=== PATIENT | male | born 1950 | race American Indian/Alaskan Native ===

== ENCOUNTER 2022-04-06 18:16 | Emergency (ER) | payer MEDICARE ==
[2022-04-06] MEDS ORDERED: SODIUM CHLORIDE 0.9% 1000 ML 1,000 ML IV ONE (19:09)
--- NOTE | 2022-04-06 19:14 | Emergency Department Report ---
ED Syncope HPI - General Chief Complaint: Syncope Stated Complaint: SYNCOPE/NAUSEA/VOMITING Time Seen by Provider: 04/06/22 18:57 - History of Present Illness Initial Comments: 71-year-old with a history of hypertension, diabetes brought in by EMS from the [facility] with syncope episode associated with nausea and vomiting that started this afternoon. Patient's last meal was around 7:38 AM this morning. According to patient and who was in the examination room with the patient says that the weakness patient eyes rolled back and was shaking. Pt denies any fever but chills. The family was travelling back to [place] laying ove in [place] having been visiting [place] for about 2 weeks. Pt has had both Covid shots and boosted. No other modifying or associated factors reported. - Related Data Allergies/Adverse Reactions: Allergies codeine Allergy (Verified 04/06/22 18:35) Unknown ED Review of Systems ROS: Stated complaint: SYNCOPE/NAUSEA/VOMITING Other details as noted in HPI Comment: All other systems reviewed and negative ED Past Medical Hx - Past Medical History Previous Medical History?: Yes Hx Hypertension: Yes Hx Diabetes: Yes - Surgical History Past Surgical History?: No ED Physical Exam - General Limitations: No Limitations General appearance: alert, in no apparent distress - Head Head exam: Present: normal inspection - Eye Eye exam: Present: normal appearance, PERRL, EOMI Pupils: Present: normal accommodation - ENT ENT exam: Present: normal exam, normal orophraynx, mucous membranes moist - Neck Neck exam: Present: normal inspection, full ROM. Absent: tenderness, meningismus - Respiratory Respiratory exam: Present: normal lung sounds bilaterally. Absent: respiratory distress, accessory muscle use - Cardiovascular Cardiovascular Exam: Present: regular rate, normal rhythm, normal heart sounds - GI/Abdominal GI/Abdominal exam: Present: soft, normal bowel sounds. Absent: distended, tenderness - Extremities Exam Extremities exam: Present: normal inspection, full ROM, normal capillary refill. Absent: tenderness, pedal edema - Back Exam Back exam: Absent: tenderness - Neurological Exam Neurological exam: Present: alert, oriented X3, CN II-XII intact - Psychiatric Psychiatric exam: Present: normal affect, normal mood - Skin Skin exam: Present: warm, normal color ED Course Vital Signs 04/06/22 04/06/22 04/06/22 18:32 18:37 19:25 Temperature 98.3 F Pulse Rate 63 83 Respiratory 16 18 Rate Blood Pressure 104/58 113/84 [Left] O2 Sat by Pulse 98 100 Oximetry 04/06/22 19:50 Temperature 98.2 F Pulse Rate 104 H Respiratory 19 Rate Blood Pressure 113/53 [Left] O2 Sat by Pulse 96 Oximetry - Reevaluation(s) Reevaluation #1: 04/06/22 19:14 brought in by EMS with syncope episode-- pt with h/o HTn and diabetes differential could include but not limited to seizure, CVA, AR, dehydration considering nausea and vomiting or any other infectious process. As a result we will go ahead and start patient on IV fluids normal saline 1 L bolus for hydration, and order routine labs that include CBC, CMP, urinalysis, urine drug screen, EKG and cardiac enzyme with chest x-ray to rule out all the above- mentioned differentials. Reevaluation #2: 04/06/22 21:15 Patient reevaluated and reports feeling much better after IV fluids normal saline 1 L bolus. Patient was cracking jokes according to his spouse who was in the room with him. Patient labs still pending at this point but hematology noted to be unremarkable with no signs of infection. Reevaluation #3: 04/06/22 22:42 Pt continue to reports feeling much better after the hydration with normal saline -- noted with elevated bun/cr at 22/1.6 indicating prerenal azotemia -- likely as a result of dehydration from the nausea and vomiting that likely led to the near syncope-- pt stable for discharge and for a close follow with his doctor in [place]-- Reevaluation #4: 04/06/22 23:07 CT head noted FINDINGS: BRAIN/INTRACRANIAL STRUCTURES: Unenhanced CT images of the brain were obtained. There is no evidence of acute abnormality. Ventricles and sulci are prominent in size, consistent with diffuse cerebral atrophy. There is evidence of chronic lacunar changes in the right basal ganglia. Extensive chronic white matter hypoattenuation is present throughout the cerebral hemispheric white matter. There is no evidence of acute ischemic injury, hemorrhage, or mass. There are no abnormal extra- axial fluid collections. Atherosclerotic vascular calcifications are present in the distal internal carotid arteries and vertebral arteries. EXTRACRANIAL STRUCTURES: Unremarkable. IMPRESSION: No acute abnormality. Extensive chronic and age-related changes. ED Medical Decision Making - Lab Data Result diagrams: 04/06/22 19:34 04/06/22 20:40 - EKG Data -: EKG Interpreted by Me EKG shows normal: sinus rhythm Rate: normal - EKG Data Interpretation: normal EKG 04/06/22 22:49 Noted with normal sinus rhythm at a rate of 86 bpm with normal QT C with no ST changes in this normal ECG. Critical care attestation.: If time is entered above; I have spent that time in minutes in the direct care of this critically ill patient, excluding procedure time. ED Disposition Clinical Impression: Dehydration Episode of syncope Qualifiers: Syncope type: unspecified Qualified Code(s): R55 - Syncope and collapse Nausea and vomiting Qualifiers: Vomiting type: unspecified Qualified Code(s): R11.2 - Nausea with vomiting, unspecified Disposition: 01 HOME / SELF CARE / HOMELESS Is pt being admited?: No Does the pt Need Aspirin: No Condition: Stable Instructions: Nausea and Vomiting, Adult, Ozsl-dl-Cmpa, Near-Syncope, Caoe-pm-Shov, Nausea and Vomiting, Adult, Dehydration, Elderly, [id number], Syncope (ED) Additional Instructions: Increase your daily fluid to help your hydration Continue your order chronic medication as prescribed by your primary doctor Please call and schedule follow-up with your primary doctor in the next 3 to 5 days for progress Please do not hesitate to call or return to emergency room if your symptoms worsen Referrals: CHERISE HARDY MD [Referring] - 3-5 Days Time of Disposition: 22:46
--- NOTE | 2022-04-06 19:52 | XRay Report ---
CHEST 1 VIEW 04/06/2022 6:45 PM INDICATION / CLINICAL INFORMATION: Syncope. COMPARISON: None available. FINDINGS: SUPPORT DEVICES: None. HEART / MEDIASTINUM: The heart size is borderline. There is mild prominence of the central pulmonary vessels. The aorta is normal in caliber. LUNGS / PLEURA: There is mild to moderate patchy parenchymal disease in the left mid to lower lung. T he right lung is probably clear. No large pleural effusion. No pneumothorax. ADDITIONAL FINDINGS: No significant additional findings. IMPRESSION: Left lower lobe pneumonia or aspiration. Signer Name: Praveen Santoro MD Signed: 04/06/2022 7:47 PM Workstation Name: [id number]
[2022-04-06 19:59] LABS: Basophils # (Auto) 0.1 K/mm3 (0.0-0.1); Basophils % (Auto) 0.9 % (0.0-1.8); Eosinophils # (Auto) 0.1 K/mm3 (0.0-0.4); Eosinophils % (Auto) 0.9 % (0.0-4.3); Hemoglobin 13.7 gm/dl (11.8-15.2); Lymphocytes # (Auto) 1.5 K/mm3 (1.2-5.4); Lymphocytes % (Auto) 18.4 % (13.4-35.0); Mean Corpuscular HGB Conc 32 % (32-34); Mean Corpuscular Volume 92 fl (84-94); Monocytes # (Auto) 0.4 K/mm3 (0.0-0.8); Monocytes % (Auto) 4.9 % (0.0-7.3); Platelet Count 261 K/mm3 (140-440); Red Blood Count 4.67 M/mm3 (3.65-5.03); Red Cell Distribution Width 14.1 % (13.2-15.2)
[2022-04-06 20:11] LABS: INR 1.06 (0.87-1.13); Partial Thromboplastin Time 23.3 Sec. (24.2-36.6)
--- NOTE | 2022-04-06 20:28 | Cat Scan Report ---
CT BRAIN: 04/06/2022 INDICATION / CLINICAL INFORMATION: syncope. COMPARISON: None available. FINDINGS: BRAIN/INTRACRANIAL STRUCTURES: Unenhanced CT images of the brain were obtained. There is no evidence of acute abnormality. Ventricles and sulci are prominent in size, consistent with diffuse cerebral atrophy. There is evidence of chronic lacunar changes in the right basal ganglia. Extensive chronic white matter hypoattenuation is present throughout the cerebral hemispheric white m atter. There is no evidence of acute ischemic injury, hemorrhage, or mass. There are no abnormal extra-axial fluid collections. Atherosclerotic vascular calcifications are present in the distal internal carotid arteries and verte bral arteries. EXTRACRANIAL STRUCTURES: Unremarkable. IMPRESSION: No acute abnormality. Extensive chronic and age-related changes. All CT scans at this location are performed using dose reduction to ALARA by means of automated expos ure control. Signer Name: Margarito Fernández MD Signed: 04/06/2022 8:24 PM Workstation Name: [id number]
[2022-04-06 21:22] LABS: Alanine Aminotransferase 14 units/L (7-56); Albumin 3.6 g/dL (3.9-5); BUN/Creatinine Ratio 14; Blood Urea Nitrogen 22 mg/dL (9-20); Calcium 8.1 mg/dL (8.4-10.2); Hemolysis Index 12
[2022-04-07 00:10] VITALS: BP 128/56
--- NOTE | 2022-04-07 18:17 | Electrocardiograph Report ---
[facility] Test Date: 2022-04-06 Test Time: 20:24:03 Pat Name: MINAL JARVIS Department: Room: Gender: M Sales Operations Associate: JASMIN : 1950 Requested By: GRACIE JEROME Order Number: [id number] Reading MD: Joselyn Orozco Measurements Intervals [place] Rate: 86 P: 18 NC: 187 QRS: 51 QRSD: 75 T: 67 QT: 368 QTc: 440 Interpretive Statements Sinus rhythm No previous ECG available for comparison Electronically Signed On 04-07-2022 18:17:08 EDT by Joselyn Orozco
== END 2022-04-06 23:30 | disposition home or self-care (01) ==
LOC: ED 18:16
DX: E86.0 Dehydration (principal); R55 Syncope and collapse; R11.2 Nausea with vomiting, unspecified; I10 Essential (primary) hypertension; E11.9 Type 2 diabetes mellitus without complications
CPT/HCPCS: 36415; 70450; 71045; 80053; 82140; 83880; 84443; 84484; 85025; 85610; 85730; 93005; 96360; 99284; J7030; 80320; G0480